=== PATIENT | female | born 1970 | race Caucasian/White ===

== ENCOUNTER 2017-02-26 10:11 | Outpatient (CLI) | payer OTHER | END 2017-02-26 10:12 | LOC: OUT 10:11 | PROVIDERS: ATTEND Colon & Rectal Surgery | DX: L73.2 Hidradenitis suppurativa (principal) | CPT/HCPCS: 99213 ==

== ENCOUNTER 2017-03-19 09:59 | Outpatient (CLI) | payer OTHER ==
[2017-03-19 10:52] LABS: eGFR (African) > 60; eGFR (Non-African) > 60
== END 2017-03-19 10:00 ==
LOC: LAB 09:59
PROVIDERS: ATTEND Family Medicine
DX: I10 Essential (primary) hypertension (principal)
CPT/HCPCS: 36415; 80053; 80061

== ENCOUNTER 2018-01-18 12:42 | Outpatient (CLI) | payer OTHER ==
[2018-01-18 13:29] LABS: eGFR (African) > 60; eGFR (Non-African) > 60
== END 2018-01-18 12:43 ==
LOC: LAB 12:42
PROVIDERS: ATTEND Family Medicine Sports Medicine
DX: R53.83 Other fatigue (principal); E55.9 Vitamin D deficiency, unspecified; M89.9 Disorder of bone, unspecified; M94.9 Disorder of cartilage, unspecified
CPT/HCPCS: 36415; 80053; 80061; 82306

== ENCOUNTER 2018-06-01 08:33 | Outpatient (CLI) | payer OTHER ==
[2018-06-01 09:12] LABS: BASOPHILS % 0.3 (0.0-1.5); EOSINOPHILS % 1.7 % (0.0-6.8); MEAN CORPUSCULAR HEMOGLOBIN 22.8 pg (28.0-34.0); MONOCYTES % 5.4 % (0.0-11.0)
[2018-06-01 09:13] LABS: NEUTROPHILS # 8.9 # k/uL (1.4-7.7)
[2018-06-01 09:35] LABS: eGFR (Non-African) > 60
[2018-06-01 09:59] LABS: APPEARANCE,URINE CLOUDY (CLEAR); COLOR,URINE YELLOW (YELLOW)
[2018-06-01 10:00] LABS: OCCULT BLOOD,URINE 2+ (NEGATIVE); PH URINE 5.5 (5.0 - 8.0); UROBILINOGEN URINE 0.2 Eu (0.2-1.0)
== END 2018-06-01 10:22 ==
LOC: LAB 08:33
PROVIDERS: ATTEND Clinical Nurse Specialist Medical-Surgical
DX: M17.0 Bilateral primary osteoarthritis of knee (principal); E66.9 Obesity, unspecified; Z68.42 Body mass index [BMI] 45.0-49.9, adult
CPT/HCPCS: 36415; 80053; 80061; 81002; 82306; 82607; 83735; 84100; 84439; 84443; 84550; 85025; 87086

== ENCOUNTER 2018-07-06 08:33 | Outpatient (CLI) | payer OTHER ==
[2018-07-06 09:11] LABS: eGFR (Non-African) > 60
== END 2018-07-06 08:35 ==
LOC: LAB 08:33
PROVIDERS: ATTEND Clinical Nurse Specialist Medical-Surgical
DX: M17.0 Bilateral primary osteoarthritis of knee (principal); E66.9 Obesity, unspecified; Z68.42 Body mass index [BMI] 45.0-49.9, adult
CPT/HCPCS: 36415; 80053; 82465; 83735; 84100; 84550

== ENCOUNTER 2018-08-12 07:30 | Outpatient (CLI) | payer OTHER ==
[2018-08-12 08:11] LABS: eGFR (Non-African) > 60
== END 2018-08-12 07:35 ==
LOC: LAB 07:30
PROVIDERS: ATTEND Clinical Nurse Specialist Medical-Surgical
DX: D64.9 Anemia, unspecified (principal); E66.9 Obesity, unspecified; E78.5 Hyperlipidemia, unspecified; M17.0 Bilateral primary osteoarthritis of knee; Z68.42 Body mass index [BMI] 45.0-49.9, adult
CPT/HCPCS: 36415; 80053; 82465; 83735; 84100; 84550

== ENCOUNTER 2018-09-16 09:55 | Outpatient (CLI) | payer OTHER ==
[2018-09-16 10:58] LABS: eGFR (Non-African) > 60
== END 2018-09-16 09:56 ==
LOC: LAB 09:55
PROVIDERS: ATTEND Clinical Nurse Specialist Medical-Surgical
DX: M17.0 Bilateral primary osteoarthritis of knee (principal); E66.9 Obesity, unspecified; D64.9 Anemia, unspecified; E78.5 Hyperlipidemia, unspecified; Z68.42 Body mass index [BMI] 45.0-49.9, adult
CPT/HCPCS: 36415; 80053; 82465; 83735; 84100

== ENCOUNTER 2018-10-21 07:30 | Outpatient (CLI) | payer OTHER ==
[2018-10-21 08:20] LABS: eGFR (Non-African) > 60
== END 2018-10-21 07:32 ==
LOC: LAB 07:30
PROVIDERS: ATTEND Clinical Nurse Specialist Medical-Surgical
DX: M17.0 Bilateral primary osteoarthritis of knee (principal); E66.9 Obesity, unspecified; D64.9 Anemia, unspecified; E78.5 Hyperlipidemia, unspecified; Z68.41 Body mass index [BMI] 40.0-44.9, adult
CPT/HCPCS: 36415; 80053; 82465; 83735; 84100; 84550